=== PATIENT | male | born 1975 | race Caucasian/White ===

== ENCOUNTER 2016-04-30 22:28 | Emergency (ER) | payer OTHER ==
[2016-04-30 22:36] VITALS: BP 157/80; PULSE 83; TEMP 98.1; BMI 32.1
--- NOTE | 2016-04-30 23:47 | PDOC ---
History of Present Illness - General Chief Complaint: Edema Stated Complaint: SWELLING LT NECK/MIGRAINE Time Seen by Provider: 04/30/16 22:32 - History of Present Illness Initial Comments: This otherwise healthy 41-year-old man presents with a history of intermittent occipital headache. The patient states that he has been awakened with pain in the back of his head, worse with movement. This has been happening a few times a week in the last 2 weeks. There has been no nausea/photophobia or visual changes with the headache. Patient has no history of migraine or severe headache. The occipital headaches respond promptly to aspirin. He experiences this headache only at night; patient recalls that he changed his pillows just prior to onset of these headaches. States that these new pillows are higher than the previous ones that he had. The patient reports no new physical activity : He visits the gym on a regular basis but has not had any new upper body exercises or activity. Patient also notes nontender, nonpainful mass for several weeks of the left side of his neck. He has no injury to the area and cannot recall any recent local infection. He has had no difficulty swallowing or tongue/throat pain. He has no history of smoking or excessive alcohol use Patient states that he is visiting the ER [facility] with these ailments because he is getting next week and wants to make sure that everything is "okay " Past History - Past Medical History Allergies/Adverse Reactions: Allergies Allergy/AdvReac Type Severity Reaction Status Date / Time No Known Allergies Allergy Unverified 05/29/11 19:04 Home Medications: Ambulatory Orders NK [No Known Home Medication] 04/30/16 Other medical history: DENIES - Psycho/Social/Smoking Cessation Hx Anxiety: No Suicidal Ideation: No Smoking Status: No Smoking History: Never smoked Number of Cigarettes Smoked Daily: 0 Review of Systems - Review of Systems Able to Perform ROS?: Yes Comments:: 12 point review of systems is negative except for what is noted in the history of present illness *Physical Exam - Vital Signs Last Vital Signs Temp Pulse Resp BP Pulse Ox 98.1 F 83 18 157/80 99 04/30/16 22:33 04/30/16 22:33 04/30/16 22:33 04/30/16 22:33 04/30/16 22:33 - Physical Exam Comments: Adult male, alert and oriented 3, in no acute distress Vital signs as noted HEAD: No contusions, abrasions or lacerations of the scalp; no facial ecchymosis , deformities or tenderness EYES: Pupils equal, round and reactive to light, extraocular movements intact, sclera anicteric, conjunctiva clear PHARYNX: No erythema, exudate or edema; mucous membranes moist NECK: Supple, nontender, no bruits; 2 cm x 1.5 cm firm, nontender, nonfluctuant mass mid lateral left side of neck LUNGS: Clear to auscultation bilaterally CARDIAC: S1, S2 normal; no extra sounds, rubs or murmurs heard ABDOMEN:Normoactive bowel sounds, nontender, no masses, no organomegaly EXTREMITIES: Normal range of motion, no edema,deformity or tenderness NEUROLOGICAL: Cranial nerves II through XII grossly intact. Normal speech, normal gait.moving all 4 extremities equally, Sensation intact in all extremities. PSYCH: Normal mood, normal affect. SKIN: Warm, Dry, normal turgor, no rashes or lesions noted. Medical Decision Making - Medical Decision Making This 41-year-old man presents with 2 separate complaints, seemingly unrelated: Recent history of occipital headache that he notices during the night and left sided neck mass consistent with nontender lymph node. Headache seems temporally related to new pillows that patient purchased 2 weeks ago, just prior to the onset of the headaches. Since the headache pain response promptly to aspirin, is not significantly severe and does not have associated systemic symptoms, likely this is muscle contraction/tension headache. Patient does not have risk factors for head and neck malignancy but nontender lymph node on the left side of his neck is of concern. The patient has been referred to ENT surgeon: Dr. Hernandez, with whom he should follow-up within the next 5 days. Referral information for Dr. Smith and has been given to the patient. The patient should return to the emergency room if he has severe, persistent headache or develops weakness/lightheadedness or focal neurologic deficits. *DC/Admit/Observation/Transfer Diagnosis at time of Disposition: Tension headache, Enlarged lymph node in neck - Discharge Dispostion Disposition: HOME Condition at time of disposition: Stable - Referrals Referrals: Mikey Hernandez MD [Staff Physician] - Call tomorrow - Patient Instructions Printed Discharge Instructions: Tension Headache Additional Instructions: Continue Motrin/Aleve/Tylenol as needed for headache Change pillows as discussed Return to ER if you have severe headache Follow-up with ENT doctor (Dr. Hernandez) within the next 5 days (call office tomorrow)
== END 2016-04-30 23:53 | disposition home or self-care (01) ==
LOC: FER 22:28
DX: G44.209 Tension-type headache, unspecified, not intractable (principal); R59.9 Enlarged lymph nodes, unspecified
CPT/HCPCS: 99282-25

== ENCOUNTER 2023-12-28 04:39 | Day surgery (SDC) | payer BC ==
[2023-12-24 14:42] VITALS: BMI 34.4
[2023-12-28] MEDS ORDERED: MIDAZOLAM HCL 2 MG/2 ML SINGLE DOSE VIAL ONE ×2 (07:20→07:43)
[2023-12-28] MEDS ORDERED: KETOROLAC TROMETHAMINE 30 MG/1 ML VIAL ONE (07:47)
[2023-12-28] MEDS ORDERED: ceFAZolin SODIUM 1 GM VIAL ONE ×2 (07:47→08:45)
[2023-12-28] MEDS ORDERED: ONDANSETRON 4 MG/2 ML VIAL ONE (07:47)
[2023-12-28] MEDS ORDERED: DEXAMETHASONE SOD PHOSPHATE 4 MG/1 ML VIAL ONE ×2 (07:47→08:45)
[2023-12-28] MEDS: ceFAZolin SODIUM 1 GM VIAL IVPB ONE (07:48)
[2023-12-28] MEDS ORDERED: PROPOFOL 20 ML ONE ×2 (07:50→08:09)
[2023-12-28 08:35] VITALS: RESP 20; TEMP 97.5
[2023-12-28 11:01] VITALS: BP 116/75; PULSE 55
== END 2023-12-28 10:45 | disposition home or self-care (01) ==
LOC: JASU-SURG 04:39
PROVIDERS: ATTEND Urology
PROC: 0TF4XZZ Fragmentation in Left Kidney Pelvis, External Approach (ICD-10-PCS; principal; 2023-12-28 07:30)
DX: N20.0 Calculus of kidney (principal)

== ENCOUNTER 2024-06-21 08:42 | Day surgery (SDC) | payer BC ==
[2024-05-25 10:48] VITALS: BMI 33.7
[2024-06-21] MEDS ORDERED: PROPOFOL 160 ML ONE (09:22)
[2024-06-21 09:53] VITALS: TEMP 97.5
[2024-06-21 12:44] VITALS: BP 112/60; PULSE 85; RESP 18
== END 2024-06-21 11:30 | disposition home or self-care (01) ==
LOC: FASU-ENDO 08:42
PROVIDERS: ATTEND Internal Medicine Gastroenterology
PROC: 0DJD8ZZ Inspection of Lower Intestinal Tract, Via Natural or Artificial Opening Endoscopic (ICD-10-PCS; principal; 2024-06-21 10:18)
DX: Z12.11 Encounter for screening for malignant neoplasm of colon (principal); K57.30 Diverticulosis of large intestine without perforation or abscess without bleeding; K64.1 Second degree hemorrhoids